=== PATIENT | female | born 1975 | race Caucasian/White ===

== ENCOUNTER → 2021-03-29 | Day surgery (SDC) | payer OTHER | END | disposition home or self-care (01) | LOC: FMAMMOTONE 11:06 | PROVIDERS: ATTEND Surgery | PROC: 0HBU3ZX Excision of Left Breast, Percutaneous Approach, Diagnostic (ICD-10-PCS; principal; 2021-03-29) | DX: N60.92 Unspecified benign mammary dysplasia of left breast (principal); N64.89 Other specified disorders of breast; R92.8 Other abnormal and inconclusive findings on diagnostic imaging of breast | CPT/HCPCS: 19081; 76098-TC-FY; 87899; 88305-TC; A4648 ==

== ENCOUNTER 2021-05-04 04:16 | Day surgery (SDC) | payer OTHER ==
[2021-05-03 08:49] VITALS: BMI 25.7
[2021-05-04] MEDS ORDERED: LIDOCAINE HCL 1%, 10 MG/ML (20ML VIAL) NR ONE ×3 (10:43)
[2021-05-04] MEDS ORDERED: LIDOCAINE HCL 1%, 10 MG/ML (20ML VIAL) ONE (11:17)
[2021-05-04] MEDS ORDERED: oxyCODONE HCL 5 MG TABLET PO PRN (11:40)
[2021-05-04 13:44] VITALS: BP 106/63; PULSE 105; TEMP 977.6
== END 2021-05-04 14:10 | disposition home or self-care (01) ==
LOC: JASU-SURG 04:16
PROVIDERS: ATTEND Surgery
PROC: 0HBU0ZZ Excision of Left Breast, Open Approach (ICD-10-PCS; principal; 2021-05-04 10:00)
DX: D05.12 Intraductal carcinoma in situ of left breast (principal)
CPT/HCPCS: 19281; 76098-TC-FY; 81025; 82962; 88307-TC; 88342-TC; 94760

== ENCOUNTER 2021-06-01 04:21 | Day surgery (SDC) | payer OTHER ==
[2021-05-27 18:01] VITALS: BMI 25.7
[2021-06-01] MEDS ORDERED: LIDOCAINE HCL 1%, 10 MG/ML (20ML VIAL) ONE (13:51)
[2021-06-01] MEDS ORDERED: LIDOCAINE HCL/PF 2% SDV 5ML VIAL ONE (14:16)
[2021-06-01] MEDS ORDERED: ONDANSETRON 4 MG/2 ML VIAL ONE (14:16)
[2021-06-01] MEDS ORDERED: DEXAMETHASONE SOD PHOSPHATE 4 MG/1 ML VIAL ONE (14:16)
[2021-06-01] MEDS ORDERED: MIDAZOLAM HCL 2 MG/2 ML SINGLE DOSE VIAL ONE ×2 (14:17→14:30)
[2021-06-01] MEDS ORDERED: PROPOFOL 20 ML ONE (14:30)
[2021-06-01] MEDS ORDERED: ceFAZolin SODIUM 1 GM VIAL IVPB ONE (14:36)
[2021-06-01] MEDS ORDERED: ceFAZolin SODIUM 1 GM VIAL ONE (14:36)
[2021-06-01] MEDS ORDERED: LIDOCAINE HCL 1%, 10 MG/ML (20ML VIAL) INF ONE ×2 (14:41)
[2021-06-01] MEDS ORDERED: oxyCODONE HCL 5 MG TABLET PO PRN (15:31)
[2021-06-01] MEDS ORDERED: LACTATED RINGERS SOLUTION 1,000 ML IV SCH (15:45)
[2021-06-01] MEDS ORDERED: oxyCODONE HCL 5 MG TABLET ONE ×2 (16:52→18:49)
[2021-06-01 16:59] VITALS: BP 113/71; PULSE 64; TEMP 97.1
[2021-06-01] MEDS ORDERED: oxyCODONE HCL 5 MG TABLET PO ONE (18:47)
== END 2021-06-01 19:04 | disposition home or self-care (01) ==
LOC: JASU-SURG 04:21
PROVIDERS: ATTEND Surgery
PROC: 0HBU0ZZ Excision of Left Breast, Open Approach (ICD-10-PCS; principal; 2021-06-01 13:00)
DX: D05.12 Intraductal carcinoma in situ of left breast (principal)
CPT/HCPCS: 81025; 88307-TC; 94760